=== PATIENT | female | born 1970 | race Caucasian/White ===

== ENCOUNTER 2023-09-16 06:40 | Day surgery (SDC) | payer OTHER ==
[~2023-09-16] VITALS: Ht 154.9 cm; Wt 68.9 kg
[2023-09-16] MEDS ORDERED: MIDAZOLAM HCL 5 MG/5 ML VIAL ONE (07:34)
[2023-09-16] MEDS ORDERED: MEPERIDINE 100 MG INJ. 100 MG/ML VIAL ONE (07:34)
[2023-09-16 11:08] VITALS: O2SAT 98
[2023-09-16 11:19] VITALS: BP_SYST 123; PULSE 78; RESP 17
== END 2023-09-16 10:07 | disposition home or self-care (01) ==
LOC: SDS 06:40 → SMU 06:41 → SDS 10:07
PROVIDERS: ATTEND Student in an Organized Health Care Education/Training Program
DX: R19.4 Change in bowel habit (principal); D12.4 Benign neoplasm of descending colon; K64.8 Other hemorrhoids; R14.0 Abdominal distension (gaseous); M19.90 Unspecified osteoarthritis, unspecified site; E78.5 Hyperlipidemia, unspecified; F32.A Depression, unspecified; I10 Essential (primary) hypertension; K58.9 Irritable bowel syndrome, unspecified; F17.210 Nicotine dependence, cigarettes, uncomplicated; Z90.710 Acquired absence of both cervix and uterus; Z79.899 Other long term (current) drug therapy
CPT/HCPCS: 45380; 45385; 88305; 99152; G0378; J2250; J2175

== ENCOUNTER 2024-01-07 07:03 | Day surgery (SDC) | payer OTHER ==
[~2024-01-07] VITALS: Ht 157.5 cm; Wt 71.7 kg
[2024-01-07] MEDS ORDERED: MIDAZOLAM HCL 5 MG/5 ML VIAL ONE (07:13)
[2024-01-07] MEDS ORDERED: MEPERIDINE 100 MG INJ. 100 MG/ML VIAL ONE (07:14)
[2024-01-07 13:35] VITALS: BP_SYST 127; PULSE 59; RESP 18
== END 2024-01-07 10:34 | disposition home or self-care (01) ==
LOC: SDS 07:03 → SMU 07:22 → SDS 10:34
PROVIDERS: ATTEND Student in an Organized Health Care Education/Training Program
DX: K21.9 Gastro-esophageal reflux disease without esophagitis (principal); K29.50 Unspecified chronic gastritis without bleeding; K31.89 Other diseases of stomach and duodenum; R14.0 Abdominal distension (gaseous); I10 Essential (primary) hypertension; E78.5 Hyperlipidemia, unspecified; F32.A Depression, unspecified; M19.90 Unspecified osteoarthritis, unspecified site; F17.210 Nicotine dependence, cigarettes, uncomplicated; Z90.710 Acquired absence of both cervix and uterus; Z79.899 Other long term (current) drug therapy; Z80.0 Family history of malignant neoplasm of digestive organs
CPT/HCPCS: 43239; 88305; 88312; 88313; 99152; G0378; J2250; J2175